=== PATIENT | female | born 1960 | race African-American/Black ===

== ENCOUNTER 2018-06-02 08:49 | Emergency (ER) | payer MEDICAID ==
[~2018-06-02] VITALS: Ht 165.1 cm; Wt 60.0 kg
[2018-06-02] MEDS ORDERED: PHEN-434 PO (08:55)
[2018-06-02 09:35] LABS: BASOPHILS % 2.9 % (0.0-2.0); EOSINOPHILS % 1.6 % (0.0-5.0); HEMATOCRIT. 39.5 % (36.0-48.0); HEMOGLOBIN. 13.1 g/dL (12.0-16.0); LYMPHOCYTES % 53.5 % (20.0-50.0); MEAN CORPUSCULAR HEMOGLOBIN 34.1 pg (28.0-32.0); MEAN CORPUSCULAR VOLUME 102.5 fL (81.0-99.0); MONOCYTES % 8.3 % (2.0-8.0); NEUTROPHILS % 33.7 % (40.0-76.0); PLATELET 185 x1000/uL (130-400); RED BLOOD CELL COUNT 3.85 mill/uL (4.2-5.4); RED CELL DISTRIBUTION WIDTH 15.6 % (11.6-14.6)
[2018-06-02 09:40] LABS: CHLORIDE 108 mEq/L (98-107)
[2018-06-02 09:49] LABS: ETHANOL BLOOD < 10 mg/dL
[2018-06-02 10:42] LABS: CLARITY URINE CLEAR (CLEAR); COLOR URINE YELLOW (YELLOW); KETONES URINE NEGATIVE (NEGATIVE); LEUKOCYTE ESTERASE URINE TRACE (NEGATIVE); NITRITE URINE NEGATIVE (NEGATIVE); OCCULT BLOOD URINE 1+ (NEGATIVE); PROTEIN URINE NEGATIVE (NEGATIVE); SPECIFIC GRAVITY URINE 1.018 (1.005-1.030); UROBILINOGEN URINE 0.2 E.U./dL (0.2-1.0)
[2018-06-02 11:11] LABS: *AMPHETAMINES SCREEN URINE NEGATIVE (NEGATIVE); *BARBITURATES SCREEN URINE NEGATIVE (NEGATIVE); *BENZODIAZEPINES SCREEN URINE NEGATIVE (NEGATIVE)
[2018-06-02 11:12] LABS: *COCAINE SCREEN URINE PRESUMTIVE POSITIVE (NEGATIVE); METHADONE URINE SCREEN NEGATIVE (NEGATIVE)
[2018-06-02 11:13] LABS: CANNABINOID URINE SCREEN NEGATIVE (NEGATIVE); OPIATES URINE SCREEN NEGATIVE (NEGATIVE); PHENCYCLIDINE URINE SCREEN NEGATIVE (NEGATIVE)
[2018-06-02] MEDS ORDERED: PHENYTOIN SODIUM 1,000 MG in SODIUM CHLORIDE 0.9% 100 ML IV ONE (11:30)
[2018-06-02] MEDS ORDERED: POTASSIUM CHLORIDE 20MEQ TABLET SR PO ONE (13:45)
[2018-06-02 13:51] VITALS: BP 129/80
== END 2018-06-02 14:10 | disposition home or self-care (01) ==
LOC: ER 08:49
DX: R56.9 Unspecified convulsions (principal); F14.10 Cocaine abuse, uncomplicated; R89.2 Abnormal level of other drugs, medicaments and biological substances in specimens from other organs, systems and tissues; F12.10 Cannabis abuse, uncomplicated
CPT/HCPCS: 36415; 80053; 80185; 80305; 81003; 85025; 96365; 96366; 99283; G0482; J1165; J7050

== ENCOUNTER 2024-05-15 22:02 | Emergency (ER) | payer MEDICAID, OTHER ==
[~2024-05-15] VITALS: Ht 172.7 cm; Wt 55.0 kg
[~2024-05-15 22:02] MED LIST: PHEN-434 PO
[2024-05-15 22:06] VITALS: O2SAT 94
[2024-05-15 23:54] LABS: BASOPHILS % 0.1 % (0.0-2.0); DIFFERENTIAL COMMENT 0; EOSINOPHILS % 0.6 % (0.0-5.0); HEMATOCRIT. 36.8 % (36.0-48.0); HEMOGLOBIN. 12.3 g/dL (12.0-16.0); LYMPHOCYTES % 14.7 % (20.0-50.0); MEAN CORPUSCULAR HEMOGLOBIN 33.7 pg (28.0-32.0); MEAN CORPUSCULAR HGB CONC 33.5 g/dL (31.0-37.0); MEAN CORPUSCULAR VOLUME 100.8 fL (81.0-99.0); MEAN PLATELET VOLUME 9.9 fl (7.4-10.4); MONOCYTES % 9.4 % (2.0-8.0); NEUTROPHILS % 75.2 % (40.0-76.0); PLATELET 189 x1000/uL (130-400); RED BLOOD CELL COUNT 3.65 mill/uL (4.2-5.4); RED CELL DISTRIBUTION WIDTH 16.4 % (11.6-14.6); WHITE BLOOD COUNT 6.6 x1000/uL (4.5-11.0)
[2024-05-16] MEDS: LEVETIRACETAM 500MG PREMIX 100 ML IV ONE ×2 (00:01→01:30)
[2024-05-16] MEDS: LACTATED RINGERS 1,000 ML IV SCH (00:01)
[2024-05-16 00:03] LABS: CHLORIDE 101 mEq/L (98-107); POTASSIUM 4.2 mEq/L (3.5-5.1); SODIUM 140 mEq/L (136-145)
[2024-05-16 00:04] LABS: CALCIUM 9.9 mg/dL (8.7-10.4); CARBON DIOXIDE 32 mEq/L (21-32)
[2024-05-16 00:09] LABS: CREATININE 1.2 mg/dL (0.6-1.0); GLUCOSE 123 mg/dL (70-105); UREA NITROGEN BLOOD 25 mg/dL (9-23)
[2024-05-16 00:11] LABS: ALANINE AMINOTRANSFERASE 78 IU/L (10-49); ALBUMIN 4.7 g/dL (3.2-4.8); ASPARTATE AMINOTRANSFERASE 110 IU/L (<34); BILIRUBIN TOTAL 0.5 mg/dL (0.1-1.0); PROTEIN TOTAL 7.9 g/dL (6.0-8.3)
[2024-05-16 01:49] LABS: CREATINE KINASE 1059 IU/L (34-145)
[2024-05-16] MEDS ORDERED: LACTATED RINGERS 1,000 ML IV SCH (03:00)
[2024-05-16 05:00] VITALS: BP 146/63; PULSE 67; RESP 16; TEMP 36.55848; O2SAT 99
== END 2024-05-16 05:46 | disposition short-term general hospital (02) ==
LOC: ER 22:02
DX: G40.909 Epilepsy, unspecified, not intractable, without status epilepticus (principal); M62.82 Rhabdomyolysis; R79.89 Other specified abnormal findings of blood chemistry; F12.10 Cannabis abuse, uncomplicated
CPT/HCPCS: 80053; 82550; 85025; 36415; 93005; 99291; 70450; 96361; 96365; J1953 ×2; Z7610 ×3

== ENCOUNTER 2024-08-21 08:54 | Emergency (ER) | payer OTHER ==
[~2024-08-21] VITALS: Ht 157.5 cm; Wt 50.0 kg
[2024-08-21 08:56] VITALS: O2SAT 98
[2024-08-21 09:43] LABS: CARBON DIOXIDE 19 mEq/L (21-32); CHLORIDE 103 mEq/L (98-107); POTASSIUM 3.3 mEq/L (3.5-5.1); SODIUM 138 mEq/L (136-145)
[2024-08-21 09:44] LABS: CALCIUM 9.4 mg/dL (8.7-10.4)
[2024-08-21 09:48] LABS: CREATININE 1.3 mg/dL (0.6-1.0)
[2024-08-21 09:49] LABS: ETHANOL BLOOD < 10 mg/dL (<10); GLUCOSE 145 mg/dL (70-105); UREA NITROGEN BLOOD 20 mg/dL (9-23)
[2024-08-21 09:52] LABS: BASOPHILS % 0.7 % (0.0-2.0); EOSINOPHILS % 0.5 % (0.0-5.0); HEMATOCRIT. 31.4 % (36.0-48.0); HEMOGLOBIN. 10.3 g/dL (12.0-16.0); LYMPHOCYTES % 32.8 % (20.0-50.0); MEAN CORPUSCULAR HEMOGLOBIN 31.6 pg (28.0-32.0); MEAN CORPUSCULAR HGB CONC 32.9 g/dL (31.0-37.0); MEAN CORPUSCULAR VOLUME 95.9 fL (81.0-99.0); MEAN PLATELET VOLUME 10.2 fl (7.4-10.4); MONOCYTES % 10.8 % (2.0-8.0); NEUTROPHILS % 55.2 % (40.0-76.0); PLATELET 176 x1000/uL (130-400); RED BLOOD CELL COUNT 3.28 mill/uL (4.2-5.4); RED CELL DISTRIBUTION WIDTH 17.1 % (11.6-14.6); WHITE BLOOD COUNT 4.2 x1000/uL (4.5-11.0)
[2024-08-21 10:13] LABS: PHENYTOIN < 2.0 ug/mL (10-20)
[2024-08-21] MEDS: LORAZEPAM 2MG/ML INJ IV ONE (10:24)
[2024-08-21] MEDS: PHENYTOIN SODIUM EXTENDED 100MG CAPSULE PO ONE (11:15)
[2024-08-21] MEDS: PHENYTOIN SODIUM 1,000 MG in SODIUM CHLORIDE 0.9% 100 ML IV ONE (11:15)
[2024-08-21 12:18] VITALS: BP 144/77; PULSE 64; RESP 13; TEMP 36.8; O2SAT 100
== END 2024-08-21 12:21 | disposition short-term general hospital (02) ==
LOC: ER 08:54 → CANBEDREQ 11:13 → ER 12:21
DX: R56.9 Unspecified convulsions (principal); F17.200 Nicotine dependence, unspecified, uncomplicated; I10 Essential (primary) hypertension; F12.90 Cannabis use, unspecified, uncomplicated; Z79.899 Other long term (current) drug therapy
CPT/HCPCS: 80048; 80320; 80185; 85025; 36415; 70450; 96374; 99285; J2060; J1165; J7050; Z7610 ×3; G0480